=== PATIENT | female | born 1950 | race Caucasian/White ===

== ENCOUNTER → 2016-11-18 | Outpatient (CLI) | payer MEDICARE ==
--- NOTE | ~2016-11-18 | MR18 ---
[facility] A Service of [facility] & [facility] RADIOLOGY TEXT RESULTS PATIENT: RYANN LOPEZ LOCATION: [facility] : 48 UNIT #: [id number] AGE: [address]: Jose Ramon Lea II, MD SEX: F ORDER DR: [id number] [facility] [address] [place], [place] [address] [id number] MR#: [id number] Acc #: [id number] NAME: RYANN LOPEZ : 1950 SEX: F STUDY DATE/TIME: 11/18/2016 16:40 UNIT: [facility] ROOM: STUDY DESCRIPTION: MR Brain Wo Contrast Attending Physician: Jose Ramon Lea II., M.D. Referring Physician: Jose Ramon Lea II., M.D. Ordering Physician: Jose Ramon Lea II., M.D. Primary Care Physician: Demi Garza M.D. MRI CENTER REPORT This report is preliminary unless electronic signature is present. EXAM MRI of the brain without contrast, dated 11/18/16. COMPARISON None. HISTORY Confusion, short-term memory loss since June 2016. Right knee surgery dated July 06, 2016. FINDINGS Multisequence, multiplanar imaging of the brain was obtained without contrast. There is an asymmetrical region of prominent CSF space in the left parietal region extending to the left parietooccipital sulcus. Small incidental extradural cystic lesion cannot be excluded. It measures 1.3 x 1.6 cm at least. No obvious T2 signal changes are noted in the adjacent brain parenchyma to suggest an area of encephalomalacic change and gliosis. S-shaped nasal septal deviation is seen. Paranasal sinuses, orbits with the ocular structures and mastoids are unremarkable except for minimal left mastoid mucosal thickening and evidence of bilateral cataract surgery. Thick slices through the sella with the pituitary gland, pineal region, upper cervical spine are grossly unremarkable. IMPRESSION 1. No acute stroke, hydrocephalus, hemorrhage or midline shift is seen. 2. There is asymmetrical focal prominence of CSF in the posteromedial aspect of the left parietal region. It could represent an incidental prominent CSF space from adjacent parenchymal volume loss due to old insult or benign cystic lesion like arachnoid cyst. It does not cause any significant edema in the adjacent brain parenchyma. 3. No acute intracranial abnormality. [facility]. [facility] A Service of [facility] RADIOLOGY TEXT RESULTS PATIENT: RYANN LOPEZ LOCATION: [facility] : 48 UNIT #: [id number] AGE: [address]: Jose Ramon Lea II, MD SEX: F ORDER DR: Dictated by... Clarissa Bergeron M.D. THIS IS AN ELECTRONICALLY VERIFIED REPORT Clarissa Bergeron M.D. at 11/19/2016 5:30 PM CPR/jt TD: 11/19/2016 15:34 JOB #: [id number] MRI CENTER REPORT Page 1 of 1 COPY
== END | disposition home or self-care (01) ==
LOC: CMRI 15:48
DX: R41.3 Other amnesia (principal); R93.0 Abnormal findings on diagnostic imaging of skull and head, not elsewhere classified
CPT/HCPCS: 70551